=== PATIENT | male | born 1965 | race Caucasian/White ===

== ENCOUNTER 2017-09-28 07:55 | Outpatient (CLI) | payer OTHER ==
[2017-09-28 08:23] LABS: BASOPHILS % (AUTO) 0.8 %; EOSINOPHILS # (AUTO) 0.1 10^3/uL (0.0-0.7); EOSINOPHILS % (AUTO) 3.3 %; HGB - HEMOGLOBIN 14.1 g/dL (14.0-18.0); LYMPHOCYTES # (AUTO) 1.2 10^3/uL (1.5-3.5); LYMPHOCYTES % (AUTO) 38.1 %; MEAN CORPUSCULAR HGB CONC 34.2 g/dL (32.0-36.0); MEAN CORPUSCULAR VOLUME 90.7 fL (80.0-94.0); MEAN PLATELET VOLUME 8.1 fL (7.4-11.4); MONOCYTES # (AUTO) 0.4 10^3/uL (0.0-1.0); MONOCYTES % (AUTO) 11.9 %; NEUTROPHILS # (AUTO) 1.4 10^3/uL (1.5-6.6); NEUTROPHILS % (AUTO) 45.9 %; PLT - PLATELET COUNT 191 10^3/uL (130-450); RED BLOOD COUNT 4.54 10^6/uL (4.70-6.10); RED CELL DISTRIBUTION WIDTH 12.6 % (12.0-15.0); WHITE BLOOD COUNT 3.1 x10^3/uL (4.8-10.8)
[2017-09-28 09:00] LABS: ALBUMIN 4.1 g/dL (3.2-5.5); ALBUMIN/GLOBULIN RATIO 1.7 (1.0-2.2); ALKALINE PHOSPHATASE 44 IU/L (42-121); ALT ALANINE AMINOTRANSFERASE 25 IU/L (10-60); AST ASPARTATE AMINOTRANSFERASE 29 IU/L (10-42); BILIRUBIN,TOTAL 0.8 mg/dL (0.2-1.0); BUN - BLOOD UREA NITROGEN 16 mg/dL (6-20); CALCIUM 8.6 mg/dL (8.5-10.3); CARBON DIOXIDE - CO2 27 mmol/L (21-32); CHLORIDE 106 mmol/L (101-111); CHOLESTEROL 259 mg/dL; CREATININE 0.9 mg/dL (0.6-1.2); GFR - MDRD 89 (>89); GLUCOSE 106 mg/dL (70-100); HDL CHOLESTEROL 85 mg/dL; LDL CHOLESTEROL,CALCULATED 162 mg/dL; LDL/HDL RATIO 1.9 (<3.6); SODIUM 138 mmol/L (135-145); TOTAL PROTEIN 6.5 g/dL (6.7-8.2); VLDL CHOLESTEROL 12 mg/dL
== END 2017-09-28 07:56 | disposition home or self-care (01) ==
LOC: LAB 07:55
PROVIDERS: ATTEND Family Medicine
DX: E78.5 Hyperlipidemia, unspecified (principal); R73.9 Hyperglycemia, unspecified; Z12.5 Encounter for screening for malignant neoplasm of prostate
CPT/HCPCS: 36415; 80053; 80061; 83721; 84153; 84443; 85025

== ENCOUNTER 2018-05-29 09:59 | Outpatient (CLI) | payer OTHER ==
[2018-05-29 14:17] LABS: CHOLESTEROL 227 mg/dL; HDL CHOLESTEROL 75 mg/dL; LDL CHOLESTEROL,CALCULATED 142 mg/dL; LDL/HDL RATIO 1.9 (<3.6); VLDL CHOLESTEROL 10 mg/dL
== END 2018-05-29 10:00 | disposition home or self-care (01) ==
LOC: LAB.WCP 09:59
PROVIDERS: ATTEND Family Medicine
DX: E78.5 Hyperlipidemia, unspecified (principal)
CPT/HCPCS: 36415; 80061; 83721

== ENCOUNTER 2019-05-21 08:54 | Outpatient (CLI) | payer OTHER ==
[2019-05-21 12:55] LABS: ALBUMIN 4.2 g/dL (3.2-5.5); ALBUMIN/GLOBULIN RATIO 1.5 (1.0-2.2); ALKALINE PHOSPHATASE 48 IU/L (42-121); ALT ALANINE AMINOTRANSFERASE 23 IU/L (10-60); AST ASPARTATE AMINOTRANSFERASE 27 IU/L (10-42); BILIRUBIN,TOTAL 0.8 mg/dL (0.2-1.0); BUN - BLOOD UREA NITROGEN 19 mg/dL (6-20); CALCIUM 9.1 mg/dL (8.5-10.3); CARBON DIOXIDE - CO2 28 mmol/L (21-32); CHLORIDE 107 mmol/L (101-111); CHOLESTEROL 240 mg/dL; CREATININE 0.9 mg/dL (0.6-1.2); GFR - MDRD 88 (>89); GLUCOSE 101 mg/dL (70-100); HDL CHOLESTEROL 81 mg/dL; LDL CHOLESTEROL,CALCULATED 146 mg/dL; LDL/HDL RATIO 1.8 (<3.6); SODIUM 138 mmol/L (135-145); VLDL CHOLESTEROL 13 mg/dL
== END 2019-05-21 09:00 | disposition home or self-care (01) ==
LOC: LAB.WCP 08:54
PROVIDERS: ATTEND Family Medicine
DX: E78.5 Hyperlipidemia, unspecified (principal); R73.9 Hyperglycemia, unspecified; Z12.5 Encounter for screening for malignant neoplasm of prostate
CPT/HCPCS: 36415; 80053; 80061; 83721; 84153

== ENCOUNTER 2020-11-19 08:50 | Outpatient (CLI) | payer OTHER ==
[2020-11-19 09:10] LABS: BASOPHILS % (AUTO) 0.8 %; EOSINOPHILS # (AUTO) 0.1 10^3/uL (0.0-0.7); EOSINOPHILS % (AUTO) 3.4 %; HCT - HEMATOCRIT 42.4 % (42.0-52.0); HGB - HEMOGLOBIN 14.1 g/dL (14.0-18.0); LYMPHOCYTES # (AUTO) 1.2 10^3/uL (1.5-3.5); LYMPHOCYTES % (AUTO) 32.7 %; MEAN CORPUSCULAR HEMOGLOBIN 30.7 pg (27.0-31.0); MEAN CORPUSCULAR HGB CONC 33.3 g/dL (32.0-36.0); MEAN CORPUSCULAR VOLUME 92.2 fL (80.0-94.0); MONOCYTES # (AUTO) 0.5 10^3/uL (0.0-1.0); MONOCYTES % (AUTO) 12.8 %; NEUTROPHILS # (AUTO) 1.8 10^3/uL (1.5-6.6); NEUTROPHILS % (AUTO) 50.3 %; PLT - PLATELET COUNT 211 10^3/uL (130-450); RED CELL DISTRIBUTION WIDTH 12.8 % (12.0-15.0); WHITE BLOOD COUNT 3.6 x10^3/uL (4.8-10.8)
[2020-11-19 09:32] LABS: ALBUMIN/GLOBULIN RATIO 1.4 (1.0-2.2); ALKALINE PHOSPHATASE 48 IU/L (42-121); ALT ALANINE AMINOTRANSFERASE 29 IU/L (10-60); AST ASPARTATE AMINOTRANSFERASE 31 IU/L (10-42); BUN - BLOOD UREA NITROGEN 19 mg/dL (6-20); CALCIUM 9.2 mg/dL (8.5-10.3); CARBON DIOXIDE - CO2 26 mmol/L (21-32); CHLORIDE 102 mmol/L (101-111); CHOL/HDL RATIO 3.4 (<5.0); CHOLESTEROL 239 mg/dL; CREATININE 0.9 mg/dL (0.6-1.2); GFR - MDRD 88 (>89); GLUCOSE 98 mg/dL (70-100); HDL CHOLESTEROL 71 mg/dL; LDL CHOLESTEROL,CALCULATED 158 mg/dL; LDL/HDL RATIO 2.2 (<3.6); POTASSIUM 4.9 mmol/L (3.5-5.0); SODIUM 139 mmol/L (135-145); TOTAL PROTEIN 6.8 g/dL (6.7-8.2); TRIGLYCERIDES 51 mg/dL; VLDL CHOLESTEROL 10 mg/dL
[2020-11-19 10:02] LABS: THYROID STIMULATING HORMONE 2.26 uIU/mL (0.34-5.60)
== END 2020-11-19 08:51 | disposition home or self-care (01) ==
LOC: LAB 08:50
PROVIDERS: ATTEND Family Medicine
DX: Z00.00 Encounter for general adult medical examination without abnormal findings (principal); E78.5 Hyperlipidemia, unspecified; R73.9 Hyperglycemia, unspecified; Z12.5 Encounter for screening for malignant neoplasm of prostate
CPT/HCPCS: 36415; 80053; 80061; 83721; 84153; 84443; 85025

== ENCOUNTER 2021-05-06 08:00 | Outpatient (CLI) | payer OTHER ==
[2021-05-06 18:21] LABS: BILIRUBIN,URINE NEGATIVE (NEGATIVE); GLUCOSE, URINE (UA) NEGATIVE (NEGATIVE); KETONES,URINE (UA) NEGATIVE (NEGATIVE); LEUKOCYTE ESTERASE, URINE NEGATIVE (NEGATIVE); NITRITE,URINE NEGATIVE (NEGATIVE); OCCULT BLOOD,URINE NEGATIVE (NEGATIVE); PH,URINE 6.5 PH (5.0-7.5); PROTEIN,URINE NEGATIVE (NEGATIVE); UROBILINOGEN,URINE 0.2 (NORMAL) E.U./dL (NORMAL)
[2021-05-06 18:53] LABS: BACTERIA,URINE None Seen /HPF (None Seen); CLARITY,URINE CLEAR (CLEAR); RBC,URINE None Seen /HPF (0-5); SQUAMOUS EPITHELIAL CELL,UR NONE SEEN (<= Few); WBC,URINE 0-3 /HPF (0-3)
== END 2021-05-06 23:59 | disposition home or self-care (01) ==
LOC: LAB.WCP 08:00
PROVIDERS: ATTEND Family Medicine
DX: R36.1 Hematospermia (principal)
CPT/HCPCS: 81001; 87086

== ENCOUNTER 2022-01-20 07:39 | Outpatient (CLI) | payer OTHER ==
[2022-01-20 07:53] LABS: EOSINOPHILS # (AUTO) 0.1 10^3/uL (0.0-0.7); EOSINOPHILS % (AUTO) 3.6 %; HCT - HEMATOCRIT 44.4 % (42.0-52.0); HGB - HEMOGLOBIN 15.2 g/dL (14.0-18.0); LYMPHOCYTES # (AUTO) 1.2 10^3/uL (1.5-3.5); LYMPHOCYTES % (AUTO) 31.2 %; MEAN CORPUSCULAR HEMOGLOBIN 30.6 pg (27.0-31.0); MEAN CORPUSCULAR HGB CONC 34.2 g/dL (32.0-36.0); MEAN CORPUSCULAR VOLUME 89.3 fL (80.0-94.0); MONOCYTES # (AUTO) 0.5 10^3/uL (0.0-1.0); MONOCYTES % (AUTO) 11.7 %; NEUTROPHILS % (AUTO) 52.2 %; PLT - PLATELET COUNT 222 10^3/uL (130-450); RED BLOOD COUNT 4.97 10^6/uL (4.70-6.10); RED CELL DISTRIBUTION WIDTH 12.3 % (12.0-15.0); WHITE BLOOD COUNT 3.9 x10^3/uL (4.8-10.8)
[2022-01-20 08:11] LABS: ALBUMIN 4.3 g/dL (3.2-5.5); ALBUMIN/GLOBULIN RATIO 1.5 (1.0-2.2); ALKALINE PHOSPHATASE 48 IU/L (42-121); ALT ALANINE AMINOTRANSFERASE 26 IU/L (10-60); AST ASPARTATE AMINOTRANSFERASE 29 IU/L (10-42); BILIRUBIN,TOTAL 0.7 mg/dL (0.2-1.0); BUN - BLOOD UREA NITROGEN 17 mg/dL (6-20); CALCIUM 9.3 mg/dL (8.5-10.3); CARBON DIOXIDE - CO2 24 mmol/L (21-32); CHLORIDE 104 mmol/L (101-111); CHOLESTEROL 265 mg/dL; CREATININE 0.9 mg/dL (0.6-1.2); GFR - MDRD 87 (>89); GLUCOSE 107 mg/dL (70-100); HDL CHOLESTEROL 67 mg/dL; LDL CHOLESTEROL,CALCULATED 168 mg/dL; LDL/HDL RATIO 2.5 (<3.6); POTASSIUM 4.5 mmol/L (3.5-5.0); SODIUM 136 mmol/L (135-145); TOTAL PROTEIN 7.2 g/dL (6.7-8.2); TRIGLYCERIDES 150 mg/dL; VLDL CHOLESTEROL 30 mg/dL
[2022-01-20 08:23] LABS: THYROID STIMULATING HORMONE 3.69 uIU/mL (0.34-5.60)
== END 2022-01-20 07:40 | disposition home or self-care (01) ==
LOC: LAB 07:39
PROVIDERS: ATTEND Nurse Practitioner Family
DX: E78.5 Hyperlipidemia, unspecified (principal); R73.9 Hyperglycemia, unspecified; Z12.5 Encounter for screening for malignant neoplasm of prostate; Z13.29 Encounter for screening for other suspected endocrine disorder; R36.1 Hematospermia
CPT/HCPCS: 36415; 80053; 80061; 83721; 84153; 84443; 85025

== ENCOUNTER 2023-01-26 15:47 | Emergency (ER) | payer OTHER ==
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
[2023-01-26] MEDS ORDERED: HYDROcod/ACETAM 5/325 MG TABLET PO STA (16:51)
[2023-01-26] MEDS ORDERED: IBUPROFEN 600 MG TABLET PO STA (16:51)
[2023-01-26 17:16] VITALS: BP 123/85
== END 2023-01-26 17:15 | disposition home or self-care (01) ==
LOC: ED 15:47
DX: S42.032A Displaced fracture of lateral end of left clavicle, initial encounter for closed fracture (principal); S80.812A Abrasion, left lower leg, initial encounter; S50.812A Abrasion of left forearm, initial encounter; S40.212A Abrasion of left shoulder, initial encounter; S20.212A Contusion of left front wall of thorax, initial encounter; V19.9XXA Pedal cyclist (driver) (passenger) injured in unspecified traffic accident, initial encounter
CPT/HCPCS: 73030; 99283; 99284; A9270

== ENCOUNTER 2023-02-08 06:26 | Day surgery (SDC) | payer OTHER ==
[~2023-02-08 06:26] MED LIST: ACETAMINOPHEN 500 MG TABLET PO ONE; CELECOXIB 100 MG CAPSULE PO ONE; ceFAZolin 2 GM VIAL ONE
--- NOTE | 2023-02-08 06:41 | ANESTHESIA ---
Pre-Anesthesia VS, & Labs Height: 5 ft 10 in - NPO >8 hours - Lab Results Lab results reviewed: Yes <Tapan Atkins P - Last Filed: 02/08/23 06:40> - NPO >8 hours <Kathleen Parra E - Last Filed: 02/08/23 07:18> - Diagnosis displaced fracture of L clavicle (Tapan Atkins) - Procedure ORIF L cavicle (Tapan Atkins) Vital Signs: Temp Pulse Resp BP Pulse Ox O2 Flow Rate 36.4 C L 59 L 16 136/90 H 97 0 02/08/23 06:48 02/08/23 06:48 02/08/23 06:48 02/08/23 06:48 02/08/23 06:48 02/08/23 06:48 Home Medications and Allergies <Tapan Atkins P - Last Filed: 02/08/23 06:40> <Kathleen Parra E - Last Filed: 02/08/23 07:18> Home Medications: Ambulatory Orders Acyclovir 400 mg PO TID PRN 02/02/23 Acyclovir 400 mg PO TID PRN 02/02/23 Allergies/Adverse Reactions: Allergies Allergy/AdvReac Type Severity Reaction Status Date / Time No Known Drug Allergies Allergy Verified 01/26/23 15:59 Anes History & Medical History - Medical History Cardiovascular: reports: None Pulmonary: reports: None Gastrointestinal: reports: None Urinary: reports: None Musculoskeletal: reports: None Endocrine/Autoimmune: reports: None Skin: reports: None - Surgical History General: reports: Colonoscopy Eyes Ears Nose Throat (EENT): reports: Tonsil/Adenoidectomy Orthopedic: reports: Other <Tapan Atkins - Last Filed: 02/08/23 06:40> - Anesthetic History Anesthesia Complications: reports: No previous complications - Medical History History of Cancer?: No <Kathleen Parra E - Last Filed: 02/08/23 07:18> Exam General: Alert, Oriented x3, Cooperative Dental: WNL <Tapan Atkins P - Last Filed: 02/08/23 06:40> Mouth Opening: Greater than 4 Fingerbreadths Mallampati classification: I Thyromental Distance: greater than 6 cm Respiratory: Lungs clear Cardiovascular: Regular rate, Normal S1, Normal S2 <Kathleen Parra E - Last Filed: 02/08/23 07:18> Plan Anesthesia Type: General Consent for Procedure(s) Verified and Reviewed: Yes Code Status: Attempt Resuscitation ASA classification: 2-Mild systemic disease Is this case an emergency?: No <Tapan Atkins P - Last Filed: 02/08/23 06:40> Anesthesia Type: Interscalene Block, Other (superficial cervical) Consent for Procedure(s) Verified and Reviewed: Yes <Kathleen Parra E - Last Filed: 02/08/23 07:18>
[2023-02-08] MEDS ORDERED: MIDAZOLAM 2 MG/2 ML VIAL ONE (06:45)
[2023-02-08] MEDS ORDERED: fentaNYL 100 MCG/2 ML VIAL ONE ×2 (06:46→11:30)
[2023-02-08] MEDS ORDERED: LIDOCAINE-PF 2% 10 ML AMP SUBQ ONE (06:46)
[2023-02-08] MEDS ORDERED: PROPOFOL 200 MG/20 ML VIAL IVP ONE (06:46)
[2023-02-08] MEDS ORDERED: LACTATED RINGERS 1,000 ML IV ONE ×2 (06:47→12:36)
[2023-02-08] MEDS ORDERED: ROCURONIUM 50 MG/5 ML VIAL ONE (06:48)
[2023-02-08] MEDS ORDERED: VANCOMYCIN 1 GM VIAL ONE (07:42)
[2023-02-08] MEDS ORDERED: BUPIVACAINE 0.5%-EPI 1:200000 PF 30 ML VIAL ONE (07:43)
[2023-02-08] MEDS ORDERED: METOCLOPRAMIDE 10 MG/2 ML VIAL IVP PRN (08:16)
[2023-02-08] MEDS ORDERED: NALOXONE 0.4 MG/ML VIAL IVP PRN (08:16)
[2023-02-08] MEDS ORDERED: MORPHINE 2 MG/ML CARPUJECT IVP PRN (08:16)
[2023-02-08] MEDS ORDERED: ePHEDrine 50 MG/ML VIAL IVP PRN (08:16)
[2023-02-08] MEDS ORDERED: ATROPINE ABBOJECT 1 MG/10 ML SYRINGE IVP PRN (08:16)
[2023-02-08] MEDS ORDERED: HYDROmorphone 0.5 MG/0.5 ML SYRINGE IVP PRN (08:16)
[2023-02-08] MEDS ORDERED: fentaNYL 100 MCG/2 ML VIAL IVP PRN (08:16)
[2023-02-08] MEDS ORDERED: ONDANSETRON 4 MG/2 ML VIAL IVP PRN ×2 (08:16→12:34)
[2023-02-08] MEDS ORDERED: LACTATED RINGERS 1,000 ML IV SCH (09:00)
[2023-02-08] MEDS ORDERED: DEXAMETHASONE 4 MG/ML VIAL ONE (09:22)
[2023-02-08] MEDS ORDERED: ONDANSETRON 4 MG/2 ML VIAL ONE ×2 (09:22→13:06)
[2023-02-08] MEDS ORDERED: VANCOMYCIN 1 GM VIAL MC ONE (10:04)
[2023-02-08] MEDS ORDERED: GLYCOPYRROLATE 1 MG/5 ML VIAL ONE (12:12)
[2023-02-08] MEDS ORDERED: NEOSTIGMINE 1 MG/1 ML 10 ML MDV ONE (12:12)
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
[2023-02-08] MEDS ORDERED: oxyCODONE 5 MG TABLET PO PRN (12:34)
[2023-02-08] MEDS ORDERED: ACETAMINOPHEN 500 MG TABLET PO PRN (13:00)
[2023-02-08] MEDS ORDERED: CELECOXIB 100 MG CAPSULE PO PRN (13:00)
[2023-02-08 14:27] VITALS: BP 119/77
--- NOTE | 2023-02-08 15:57 | ANESTHESIA POST OP EVALUATION ---
Anesthesia Post Eval - Post Anesthesia Eval Vitals: Last Vital Signs Temp 36.3 C L 02/08/23 14:15 Pulse 80 02/08/23 14:15 Resp 16 02/08/23 14:15 BP 119/77 02/08/23 14:15 Pulse Ox 93 02/08/23 14:15 O2 Flow Rate 0 02/08/23 06:48 CV Function Including HR & BP: Stable Pain Control: Satisfactory Nausea & Vomiting: Negative Mental Status: Baseline Respiratory Status: Airway Patent Hydration Status: Satisfactory Anesthesia Complications: None
--- NOTE | 2023-02-10 16:49 | XRAY Report ---
PROCEDURE: OR C-Arm Procedure INDICATIONS: LEFT CLAVICLE FX FLUORO TIME: 0:27 MIN TECHNIQUE: Single intraoperative fluoroscopic image of left shoulder was obtained. COMPARISON: Shoulder radiograph dated 01/26/2023. FINDINGS: Intraoperative fluoroscopic image shows ORIF of distal left clavicle. Total fluoroscopy time is 27 se conds. IMPRESSION: Fluoroscopy guidance was provided intraoperatively for internal fixation of distal left clavicle. Reviewed by: Cristhian Calabrese MD on 02/10/2023 4:48 PM PDT Approved by: Cristhian Calabrese MD on 02/10/2023 4:48 PM PDT Station ID: [id number]
== END 2023-02-08 06:27 | disposition home or self-care (01) ==
LOC: SDS 06:26
PROVIDERS: ATTEND Orthopaedic Surgery
DX: S42.032A Displaced fracture of lateral end of left clavicle, initial encounter for closed fracture (principal)
CPT/HCPCS: 23515; A9270; C1713; J3370; J7120

== ENCOUNTER 2023-02-17 02:40 | Emergency (ER) | payer OTHER ==
[2023-02-17] MEDS ORDERED: diphenhydrAMINE INJ 50 MG/ML VIAL IVP STA (03:06)
[2023-02-17] MEDS ORDERED: diphenhydrAMINE INJ 50 MG/ML VIAL ONE (03:07)
[2023-02-17] MEDS ORDERED: SODIUM CHLORIDE 0.9% 1,000 ML IV STA (03:07)
[2023-02-17] MEDS ORDERED: methylPREDNISolone SUCCINATE 125 MG/2 ML VIAL IVP STA (03:07)
[2023-02-17] MEDS ORDERED: FAMOTIDINE 20 MG/2 ML VIAL IVP STA (03:07)
[2023-02-17] MEDS ORDERED: EPINEPHrine 1 MG/ML AMP IM STA (03:27)
--- NOTE | 2023-02-17 03:29 | ED Physician Documentation ---
History of Present Illness - Stated complaint Stated Complaint: TONGUE SWOLLEN - Chief complaint Chief Complaint: Resp - History obtained from History obtained from: Patient, Family () - Additonal information Additional information: 50-year-old man with history of allergic reaction to "some pain medicine a drug rep left" presents with R lip and R tongue swelling tonight. patient also had R hand swelling the day before. he just had arm surgery and has been taking oxycodone which he has never taken before. Also sleeping with a new foam support. denies itching, throat tightness, cp, soa, nausea, or rash. PD PAST MEDICAL HISTORY - Past Medical History Cardiovascular: None Respiratory: None Endocrine/Autoimmune: None GI: None : None HEENT: Chronic vision loss, Other Psych: None Musculoskeletal: None Derm: None - Past Surgical History General: Colonoscopy Ortho: Other HEENT: Tonsil/Adenoidectomy - Present Medications Home Medications: Ambulatory Orders Medication Instructions Recorded Confirmed HYDROcod/ACETAM 5/325 [[place] 5/325] 1 ea PO Q6H PRN #18 tablet 01/26/23 02/02/23 Ibuprofen [Motrin] 600 mg PO TID PRN #25 tab 01/26/23 02/02/23 Acyclovir 400 mg PO TID PRN 02/02/23 02/02/23 EPINEPHrine [Epinephrine] 0.3 mg IJ ONCE PRN #3 each 02/17/23 - Allergies Allergies/Adverse Reactions: Allergies Allergy/AdvReac Type Severity Reaction Status Date / Time No Known Drug Allergies Allergy Verified 02/17/23 02:49 PD ED PE NORMAL - Vitals Vital signs reviewed: Yes - General General: Alert and oriented X 3, No acute distress, Well developed/nourished - HEENT HEENT: Atraumatic, PERRL, EOMI, Other (R lip and tongue swollen) - Neck Neck: Other (good upperairway sounds on neck auscultation) - Cardiac Cardiac: RRR - Respiratory Respiratory: No respiratory distress, Clear bilaterally - Derm Derm: Normal color, No rash Results - Vitals Vitals: Vital Signs - 24 hr 02/17/23 02/17/23 02/17/23 02:45 03:19 03:30 Temperature 35.9 C L Heart Rate 93 79 76 Respiratory 19 18 18 Rate Blood Pressure 139/107 H 127/94 H 123/85 H O2 Saturation 96 96 100 If not protocol 2 2 : Oxygen Flow, liters/minute 02/17/23 02/17/23 02/17/23 04:00 04:30 05:00 Temperature Heart Rate 84 86 84 Respiratory 17 18 16 Rate Blood Pressure 118/75 121/74 117/76 O2 Saturation 99 96 97 If not protocol 2 2 2 : Oxygen Flow, liters/minute 02/17/23 02/17/23 05:30 06:00 Temperature Heart Rate 84 88 Respiratory 17 18 Rate Blood Pressure 116/75 112/71 O2 Saturation 96 96 If not protocol 2 2 : Oxygen Flow, liters/minute Oxygen O2 Source Nasal cannula Oxygen Flow Rate 2 PD Medical Decision Making - ED course ED course: Patient not responding to Benadryl, Solu-Medrol, Pepcid on its own and swelling to the tongue appears to be extending now from the right side to the left side of the tongue as well. Still with good airflow in upper airways on lab and neck auscultation. Plan to give 0.3 of IM epinephrine as well. Patient's swelling has almost completely resolved after four hours of monitoring. additional dose of benadryl provided. plan to discharge with outpat ient follow up. return precautions given. epipen rx sent. Departure - Departure Disposition: 01 Home, Self Care Clinical Impression: Allergic reaction Condition: Stable Instructions: EpiPen Auto Injector Dc Prescriptions: EPINEPHrine [Epinephrine] 0.3 mg IJ ONCE PRN #3 each PRN Reason: Anaphylaxis Comments: Prescription For an EpiPen was sent to the [facility] pharmacy. This can be taken by injection for anaphylaxis (Severe allergic reaction). You also should take benadryl or diphenhydramine 50mg by mouth if you experience an allergic reaction. You must come to the hospital if you use your epipen for any reason. Return to the ED if you have other concerns as well. Follow up with your primary care provider for referral to allergy and immunology.
[2023-02-17 06:04] VITALS: BP 112/71
[2023-02-17] MEDS ORDERED: diphenhydrAMINE 25 MG CAPSULE PO STA (06:15)
== END 2023-02-17 06:37 | disposition home or self-care (01) ==
LOC: ED 02:40
DX: T78.40XA Allergy, unspecified, initial encounter (principal)
CPT/HCPCS: 96372; 96374; 96375; 99284; 99285; A9270; J1200

== ENCOUNTER 2023-02-22 05:54 | Emergency (ER) | payer OTHER ==
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
[2023-02-22] MEDS ORDERED: DEXAMETHASONE 10 MG/ML VIAL IVP STA (07:25)
[2023-02-22 09:17] VITALS: BP 116/76
== END 2023-02-22 09:31 | disposition home or self-care (01) ==
LOC: ED 05:54
DX: T78.40XD Allergy, unspecified, subsequent encounter (principal)
CPT/HCPCS: 99283

== ENCOUNTER 2023-02-24 07:27 | Outpatient (CLI) | payer OTHER ==
[2023-02-24 07:47] LABS: BASOPHILS % (AUTO) 0.2 %; EOSINOPHILS # (AUTO) 0.1 10^3/uL (0.0-0.7); EOSINOPHILS % (AUTO) 0.9 %; HCT - HEMATOCRIT 38.5 % (42.0-52.0); HGB - HEMOGLOBIN 13.1 g/dL (14.0-18.0); LYMPHOCYTES % (AUTO) 20.9 %; MEAN CORPUSCULAR VOLUME 88.1 fL (80.0-94.0); MEAN PLATELET VOLUME 9.5 fL (7.4-11.4); MONOCYTES # (AUTO) 0.8 10^3/uL (0.0-1.0); MONOCYTES % (AUTO) 8.5 %; NEUTROPHILS # (AUTO) 6.6 10^3/uL (1.5-6.6); NEUTROPHILS % (AUTO) 69.1 %; PLT - PLATELET COUNT 311 10^3/uL (130-450); RED BLOOD COUNT 4.37 10^6/uL (4.70-6.10); RED CELL DISTRIBUTION WIDTH 12.7 % (12.0-15.0); WHITE BLOOD COUNT 9.5 x10^3/uL (4.8-10.8)
[2023-02-24 07:53] LABS: BILIRUBIN,URINE NEGATIVE (NEGATIVE); GLUCOSE, URINE (UA) NEGATIVE (NEGATIVE); KETONES,URINE (UA) NEGATIVE (NEGATIVE); LEUKOCYTE ESTERASE, URINE NEGATIVE (NEGATIVE); NITRITE,URINE NEGATIVE (NEGATIVE); OCCULT BLOOD,URINE NEGATIVE (NEGATIVE); PROTEIN,URINE NEGATIVE (NEGATIVE); UROBILINOGEN,URINE 0.2 (NORMAL) E.U./dL (NORMAL)
[2023-02-24 07:56] LABS: CLARITY,URINE CLEAR (CLEAR)
[2023-02-24 08:05] LABS: ALBUMIN 3.6 g/dL (3.2-5.5); ALBUMIN/GLOBULIN RATIO 1.2 (1.0-2.2); ALKALINE PHOSPHATASE 82 IU/L (42-121); ALT ALANINE AMINOTRANSFERASE 28 IU/L (10-60); AST ASPARTATE AMINOTRANSFERASE 21 IU/L (10-42); BILIRUBIN,TOTAL 0.6 mg/dL (0.2-1.0); BUN - BLOOD UREA NITROGEN 17 mg/dL (6-20); CALCIUM 9.1 mg/dL (8.5-10.3); CARBON DIOXIDE - CO2 28 mmol/L (21-32); CHLORIDE 107 mmol/L (101-111); CHOL/HDL RATIO 3.8 (<5.0); CHOLESTEROL 226 mg/dL; CREATININE 0.9 mg/dL (0.6-1.2); GFR - MDRD 87 (>89); GLUCOSE 101 mg/dL (70-100); HDL CHOLESTEROL 59 mg/dL; LDL CHOLESTEROL,CALCULATED 152 mg/dL; LDL/HDL RATIO 2.6 (<3.6); POTASSIUM 4.4 mmol/L (3.5-5.0); SODIUM 140 mmol/L (135-145); TOTAL PROTEIN 6.7 g/dL (6.7-8.2); TRIGLYCERIDES 75 mg/dL; VLDL CHOLESTEROL 15 mg/dL
[2023-02-24 08:16] LABS: THYROID STIMULATING HORMONE 2.68 uIU/mL (0.34-5.60)
[2023-02-24 08:21] LABS: BACTERIA,URINE None Seen /HPF (None Seen); RBC,URINE None Seen /HPF (0-5); SQUAMOUS EPITHELIAL CELL,UR NONE SEEN (<= Few); WBC,URINE 0-3 /HPF (0-3)
== END 2023-02-24 07:28 | disposition home or self-care (01) ==
LOC: LAB 07:27
PROVIDERS: ATTEND Physician Assistant
DX: Z00.00 Encounter for general adult medical examination without abnormal findings (principal); H02.849 Edema of unspecified eye, unspecified eyelid; Z88.9 Allergy status to unspecified drugs, medicaments and biological substances
CPT/HCPCS: 36415; 80053; 80061; 81001; 83721; 84443; 85025; 87086

== ENCOUNTER 2023-03-01 14:51 | Emergency (ER) | payer OTHER ==
[2023-03-01 14:58] VITALS: BP 130/83
[2023-03-01] MEDS ORDERED: ENOXAPARIN 80 MG/0.8 ML SYRINGE SUBQ STA (15:27)
--- NOTE | 2023-03-01 16:27 | Ultrasound Report ---
PROCEDURE: Duplex Ext Veins Left INDICATIONS: pain/swelling TECHNIQUE: Real-time imaging, as well as color and pulse Doppler interrogation, were performed of the lower extr emity deep veins from the inguinal ligament to the popliteal fossa. COMPARISON: None. FINDINGS: There is nonocclusive thrombus in the left common femoral vein. There is occlusive thrombus in the pr ofunda vein. Nonocclusive popliteal thrombus. Occlusive calf vein thrombi. IMPRESSION: Positive for DVT, occlusive in the profunda and calf veins. Nonocclusive component in th e common femoral vein and popliteal vein. Reviewed by: Zachary Mattson MD on 03/01/2023 4:25 PM PDT Approved by: Zachary Mattson MD on 03/01/2023 4:25 PM PDT Station ID: [id number]
--- NOTE | 2023-03-14 17:53 | ED Physician Documentation ---
History of Present Illness - Stated complaint Stated Complaint: LFT LEG PX - Chief complaint Chief Complaint: Ext Problem - History obtained from History obtained from: Patient - Additonal information Additional information: 58 yo N presents w/ left calf pain. He was seen at the clinic and there was concern for possible DVT so he was sent to the ER. Pt is 3 weeks s/p left shoulder surgery. He has been mobile however, walking daily. He denies any injury to the leg, no falls or trauma. He denies redness or swelling. HE has been on daily aspirin for prophylaxis. HE states left leg feels occasionally like a "derek horse." No dyspnea or cp. No hx/o DVT. Review of Systems Constitutional: reports: Reviewed and negative Nose: reports: Reviewed and negative Throat: reports: Reviewed and negative Cardiac: reports: Reviewed and negative Respiratory: reports: Reviewed and negative GI: reports: Reviewed and negative Musculoskeletal: reports: Extremity pain. denies: Neck pain, Back pain, Joint pain, Extremity swelling, Joint swelling, Pain with weight bearing, Reviewed and negative, Other PD PAST MEDICAL HISTORY - Past Medical History Past Medical History: Yes Cardiovascular: None Respiratory: None Neuro: None Endocrine/Autoimmune: None GI: None : None HEENT: Chronic vision loss, Other Psych: None Musculoskeletal: None Derm: None - Past Surgical History Past Surgical History: Yes General: Colonoscopy Ortho: Other HEENT: Tonsil/Adenoidectomy - Present Medications Home Medications: Ambulatory Orders Medication Instructions Recorded Confirmed EPINEPHrine [Epinephrine] 0.3 mg IJ ONCE PRN #3 each 02/17/23 predniSONE [Deltasone] 10 mg PO ONCE #26 tablet 02/22/23 03/01/23 Rivaroxaban [Xarelto] 15 mg PO BID 21 Days #42 tablet 03/01/23 Rivaroxaban [Xarelto] 20 mg PO DAILY #60 tablet 03/01/23 - Allergies Allergies/Adverse Reactions: Allergies Allergy/AdvReac Type Severity Reaction Status Date / Time No Known Drug Allergies Allergy Verified 03/01/23 14:54 - Social History Does the pt smoke?: No Smoking Status: Never smoker Does the pt drink ETOH?: No Does the pt have substance abuse?: No - Immunizations Immunizations are current?: No Immunizations: TDAP >10years/unknown - POLST Patient has POLST: No PD ED PE NORMAL - Vitals Vital signs reviewed: Yes - General General: Alert and oriented X 3, No acute distress, Well developed/nourished - HEENT HEENT: Atraumatic, Pharynx benign - Neck Neck: Supple, no meningeal sign, No adenopathy - Cardiac Cardiac: RRR, No murmur - Respiratory Respiratory: No respiratory distress, Clear bilaterally - Abdomen Abdomen: Normal bowel sounds, Soft, Non tender - Derm Derm: Normal color, Warm and dry, No rash - Extremities Extremities: No deformity, No tenderness to palpate, Normal ROM s pain, No edema, No calf tenderness / cord, Other (no obvious swelling or erythema, no reproducible left calf pain today.) Results - Vitals Vitals: Oxygen O2 Source Room air - Rads (name of study) No standard instances Relevant Findings:: Final report received PD Medical Decision Making - ED course Complexity details: reviewed results, re-evaluated patient, considered differential, d/w patient, d/w family ED course: Pt presents w/ left calf pain. He has no swelling or erythema and Sustained no trauma to the area. He is at risk for dvt given recent shoulder surgery, though he never had a prolonged period of immobility except immediately postoperative. HE is quite healthy and active at baseline. An US was obtained and does show signs of DVT. We will start him on oral DOAC. Pt received first does of Lovenox here. He is to fup w/ his PCP within the next few days and certainly before his initial prescription of DOAC finishes as it will likely need to be extended. He has no chest sx at this time so will hold off on PE study as he will be on appropriate treatment nonetheless. Return precautions reviewed w/ pt and . Departure - Departure Disposition: 01 Home, Self Care Clinical Impression: Left leg DVT Qualifiers: Affected thrombotic vein of extremity: femoral Chronicity: acute Qualified Code(s): I82.412 - Acute embolism and thrombosis of left femoral vein Condition: Good Instructions: ED DVT Follow-Up: Alyssa Amin ARNP [Primary Care Provider] - Prescriptions: Rivaroxaban [Xarelto] 15 mg PO BID 21 Days #42 tablet Rivaroxaban [Xarelto] 20 mg PO DAILY #60 tablet Comments: You do have a blood clot in the left leg, and multiple vessels of the left lower leg. We are started you on a Lovenox shot here but I will discharge you home on a medication called Xarelto which is an anticoagulant. You will take it twice daily for the next 3 weeks and then once daily thereafter. Please follow-up with your primary doctor in the next week for reevaluation. They may also consider ordering lab work to evaluate for hypercoagulable state. Please return to the ER if you develop sudden increasing shortness of breath, chest pain, increased leg pain or swelling or other new concerns. Medication was sent to [facility] pharmacy Discharge Date/Time: 03/01/23 15:55
== END 2023-03-01 15:55 | disposition home or self-care (01) ==
LOC: ED 14:51
DX: I82.412 Acute embolism and thrombosis of left femoral vein (principal); I82.432 Acute embolism and thrombosis of left popliteal vein
CPT/HCPCS: 93971; 99283; 99284; J1650

== ENCOUNTER 2023-03-02 08:00 | Outpatient (CLI) | payer OTHER ==
--- NOTE | 2023-03-02 14:43 | XRAY Report ---
PROCEDURE: Shoulder 3 View LT INDICATIONS: LEFT CLAVICLE FRACTURE/SHOULDER PAIN TECHNIQUE: 4 views of the shoulder were acquired. COMPARISON: X-ray left shoulder, 01/26/2023. FINDINGS: Bones: ORIF of left distal clavicular shaft and head fracture. Alignment is improved. There is super ior subluxation of the distal clavicle at AC joint consistent with AC joint sprain (gradev2). No susp icious bony lesions. Visualized ribs appear intact. Soft tissues: No suspicious soft tissue calcifications. IMPRESSION: 1. ORIF of distal clavicle fracture with improved alignment. 2. Grade 2 AC joint sprain. Reviewed by: Jorge Toney MD on 03/02/2023 2:41 PM PDT Approved by: Jorge Toney MD on 03/02/2023 2:41 PM PDT Station ID: [id number]
== END 2023-03-02 23:59 | disposition home or self-care (01) ==
LOC: DI.WOS 08:00
PROVIDERS: ATTEND Orthopaedic Surgery
DX: S42.032D Displaced fracture of lateral end of left clavicle, subsequent encounter for fracture with routine healing (principal); S43.52XA Sprain of left acromioclavicular joint, initial encounter

== ENCOUNTER 2023-03-10 15:12 | Outpatient (CLI) | payer OTHER ==
[2023-03-10 15:58] LABS: BASOPHILS % (AUTO) 0.5 %; EOSINOPHILS # (AUTO) 0.3 10^3/uL (0.0-0.7); EOSINOPHILS % (AUTO) 7.7 %; HCT - HEMATOCRIT 38.1 % (42.0-52.0); HGB - HEMOGLOBIN 12.7 g/dL (14.0-18.0); LYMPHOCYTES # (AUTO) 1.1 10^3/uL (1.5-3.5); LYMPHOCYTES % (AUTO) 26.2 %; MEAN CORPUSCULAR HEMOGLOBIN 29.3 pg (27.0-31.0); MEAN CORPUSCULAR HGB CONC 33.3 g/dL (32.0-36.0); MEAN CORPUSCULAR VOLUME 87.8 fL (80.0-94.0); MEAN PLATELET VOLUME 8.9 fL (7.4-11.4); MONOCYTES # (AUTO) 0.5 10^3/uL (0.0-1.0); MONOCYTES % (AUTO) 11.4 %; NEUTROPHILS # (AUTO) 2.2 10^3/uL (1.5-6.6); PLT - PLATELET COUNT 295 10^3/uL (130-450); RED BLOOD COUNT 4.34 10^6/uL (4.70-6.10); RED CELL DISTRIBUTION WIDTH 12.4 % (12.0-15.0); WHITE BLOOD COUNT 4.1 x10^3/uL (4.8-10.8)
[2023-03-10 16:22] LABS: INR 1.6 (0.8-1.2); PT - PROTHROMBIN TIME 16.4 secs (9.9-12.6)
[2023-03-10 16:25] LABS: % IRON SATURATION 16 % (20-50); IRON 38 ug/dL (45-182); TOTAL IRON BINDING CAPACITY 245 ug/dL (250-450); TRANSFERRIN 175 mg/dL (180-329)
[2023-03-10 16:30] LABS: PARTIAL THROMBOPLASTIN TIME 34.5 secs (24.9-33.3)
[2023-03-10 16:44] LABS: FERRITIN 126.2 ng/mL (23.9-336.2)
[2023-03-10 16:48] LABS: FOLATE 10.62 ng/mL (5.90 - >24.8)
== END 2023-03-10 15:13 | disposition home or self-care (01) ==
LOC: LAB 15:12
PROVIDERS: ATTEND Nurse Practitioner Family
DX: D64.9 Anemia, unspecified (principal); I82.4Z9 Acute embolism and thrombosis of unspecified deep veins of unspecified distal lower extremity
CPT/HCPCS: 36415; 81241; 81599; 82607; 82728; 82746; 83540; 84466; 85025; 85610; 85730

== ENCOUNTER 2023-03-27 08:00 | Outpatient (CLI) | payer OTHER ==
--- NOTE | 2023-03-27 16:29 | XRAY Report ---
PROCEDURE: Clavicle LT INDICATIONS: LEFT CLAVICLE ORIF TECHNIQUE: 2 views of the clavicle were acquired. COMPARISON: X-ray left shoulder, 03/02/2023, 01/26/2023. FINDINGS: Bones: Open reduction and internal fixation of comminuted distal clavicular fracture. The alignment is stable. No suspicious bony lesions. Soft tissues: No suspicious soft tissue calcifications or masses. IMPRESSION: Open reduction and internal fixation of comminuted distal clavicular fracture with stable alignment. Reviewed by: Jorge Toney MD on 03/27/2023 4:27 PM PDT Approved by: Jorge Toney MD on 03/27/2023 4:27 PM PDT Station ID: [id number]
== END 2023-03-27 23:59 | disposition home or self-care (01) ==
LOC: DI.WOS 08:00
PROVIDERS: ATTEND Orthopaedic Surgery
DX: S42.032D Displaced fracture of lateral end of left clavicle, subsequent encounter for fracture with routine healing (principal)

== ENCOUNTER 2023-04-24 08:00 | Outpatient (CLI) | payer OTHER ==
--- NOTE | 2023-04-24 15:51 | XRAY Report ---
PROCEDURE: Clavicle LT INDICATIONS: LEFT CLAVICLE ORIF TECHNIQUE: 2 views of the clavicle were acquired. COMPARISON: Left clavicle radiographs 03/27/2023 and shoulder radiographs 03/02/2023. FINDINGS: Bones: Postsurgical changes are seen from internal fixation of the previously seen distal clavicular fracture with hardware components in stable positions. Mild progressive healing changes are seen wit h continued visualization of the lucent fracture lines. Soft tissues: No suspicious soft tissue calcifications or masses. IMPRESSION: Stable postsurgical changes and alignment of the distal clavicular fracture. Reviewed by: Dilip Pena MD on 04/24/2023 3:50 PM PDT Approved by: Dilip Pena MD on 04/24/2023 3:50 PM PDT Station ID: [id number]
== END 2023-04-24 23:59 | disposition home or self-care (01) ==
LOC: DI.WOS 08:00
PROVIDERS: ATTEND Orthopaedic Surgery
DX: S42.032D Displaced fracture of lateral end of left clavicle, subsequent encounter for fracture with routine healing (principal)

== ENCOUNTER 2023-06-05 08:00 | Outpatient (CLI) | payer OTHER ==
--- NOTE | 2023-06-05 15:00 | XRAY Report ---
PROCEDURE: Clavicle LT INDICATIONS: LEFT CLAVICLE ORIF TECHNIQUE: 2 views of the clavicle were acquired. COMPARISON: 04/24/2023 FINDINGS: Bones: Healing comminuted distal clavicle fracture with fixation hardware in place. Hardware appears intact. Fracture planes are still seen. Borderline widening of the acromioclavicular joint is stable . Soft tissues: No suspicious soft tissue calcifications or masses. IMPRESSION: No change in position of a fixed, healing left distal clavicle fracture. Reviewed by: Lexi Sandhu MD on 06/05/2023 2:58 PM PDT Approved by: Lexi Sandhu MD on 06/05/2023 2:58 PM PDT Station ID: [id number]
== END 2023-06-05 23:59 | disposition home or self-care (01) ==
LOC: DI.WOS 08:00
PROVIDERS: ATTEND Orthopaedic Surgery
DX: S42.032D Displaced fracture of lateral end of left clavicle, subsequent encounter for fracture with routine healing (principal)

== ENCOUNTER 2024-05-15 07:44 | Outpatient (CLI) | payer OTHER ==
[2024-05-15 08:05] LABS: EOSINOPHILS # (AUTO) 0.1 10^3/uL (0.0-0.7); EOSINOPHILS % (AUTO) 3.3 %; HCT - HEMATOCRIT 42.1 % (42.0-52.0); HGB - HEMOGLOBIN 13.9 g/dL (14.0-18.0); LYMPHOCYTES # (AUTO) 1.4 10^3/uL (1.5-3.5); LYMPHOCYTES % (AUTO) 35.3 %; MEAN CORPUSCULAR HEMOGLOBIN 30.1 pg (27.0-31.0); MEAN CORPUSCULAR VOLUME 91.1 fL (80.0-94.0); MEAN PLATELET VOLUME 10.2 fL (7.4-11.4); MONOCYTES # (AUTO) 0.5 10^3/uL (0.0-1.0); MONOCYTES % (AUTO) 11.3 %; NEUTROPHILS # (AUTO) 1.9 10^3/uL (1.5-6.6); NEUTROPHILS % (AUTO) 48.8 %; PLT - PLATELET COUNT 202 10^3/uL (130-450); RED BLOOD COUNT 4.62 10^6/uL (4.70-6.10); RED CELL DISTRIBUTION WIDTH 12.7 % (12.0-15.0)
[2024-05-15 08:19] LABS: ALBUMIN 4.1 g/dL (3.2-5.5); ALBUMIN/GLOBULIN RATIO 1.8 (1.0-2.2); ALKALINE PHOSPHATASE 49 IU/L (42-121); ALT ALANINE AMINOTRANSFERASE 17 IU/L (10-60); AST ASPARTATE AMINOTRANSFERASE 22 IU/L (10-42); BILIRUBIN,TOTAL 0.6 mg/dL (0.2-1.0); BUN - BLOOD UREA NITROGEN 11 mg/dL (6-20); CALCIUM 9.1 mg/dL (8.5-10.3); CARBON DIOXIDE - CO2 31 mmol/L (21-32); CHLORIDE 106 mmol/L (101-111); CHOL/HDL RATIO 3.4 (<5.0); CHOLESTEROL 195 mg/dL; CREATININE 0.9 mg/dL (0.6-1.3); GFR - MDRD 86 (>89); GLUCOSE 101 mg/dL (74-104); HDL CHOLESTEROL 58 mg/dL; LDL CHOLESTEROL,CALCULATED 122 mg/dL; LDL/HDL RATIO 2.1 (<3.6); POTASSIUM 4.3 mmol/L (3.5-4.5); SODIUM 140 mmol/L (135-145); TOTAL PROTEIN 6.4 g/dL (6.4-8.9); TRIGLYCERIDES 74 mg/dL; VLDL CHOLESTEROL 15 mg/dL
== END 2024-05-15 07:45 | disposition home or self-care (01) ==
LOC: LAB 07:44
PROVIDERS: ATTEND Nurse Practitioner Family
DX: Z00.00 Encounter for general adult medical examination without abnormal findings (principal); Z12.5 Encounter for screening for malignant neoplasm of prostate
CPT/HCPCS: 36415; 80053; 80061; 83721; 84153; 84443; 85025